=== PATIENT | male | born 1955 | race Caucasian/White ===

== ENCOUNTER 2024-05-03 19:22 | Emergency (ER) | payer MEDICARE, OTHER ==
[2024-05-03 19:46] VITALS: BP 120/70; O2SAT 98
--- NOTE | 2024-05-03 19:49 | ED Physician Documentation ---
History of Present Illness - Stated complaint Stated Complaint: R FINGER LAC - Chief complaint Chief Complaint: Laceration - Additonal information Additional information: Patient is a 68-year-old male presenting to the emergency department with right finger lack. Injury occurred around 1630 this afternoon. Patient notes he was sharpening a blade did not wearing protective gloves. He washed wound and wrapped at home but continues to have mild bleeding. He is not on any blood thinners. He is right-handed. Last tetanus shot was over 20 years ago according to patient. Injury occurred over right fifth digit over PIP joint on dorsal side. PD PAST MEDICAL HISTORY - Past Medical History Past Medical History: No - Past Surgical History Past Surgical History: Yes General: Hiatal hernia repair - Present Medications Home Medications: Ambulatory Orders Medication Instructions Recorded Confirmed No Known Home Medications 05/03/24 05/03/24 - Allergies Allergies/Adverse Reactions: Allergies Allergy/AdvReac Type Severity Reaction Status Date / Time No Known Drug Allergies Allergy Verified 05/03/24 19:38 - Social History Does the pt smoke?: No Smoking Status: Never smoker Does the pt drink ETOH?: Yes Does the pt have substance abuse?: No - Immunizations Immunizations are current?: No Immunizations: TDAP >10years/unknown PD ED PE NORMAL - Vitals Vital signs reviewed: Yes - General General: Alert and oriented X 3 - HEENT HEENT: Atraumatic - Neck Neck: Supple, no meningeal sign - Cardiac Cardiac: RRR - Respiratory Respiratory: No respiratory distress - Abdomen Abdomen: Normal bowel sounds - Derm Derm: Other (Laceration to PIP joint wiht minimal bleeding, no signs of contamin ation. Full ROM and strenght at PIP and DIP and MCP joint. Good capillary refill < 3 seconds.) - Extremities Extremities: No deformity, No edema - Neuro Neuro: Alert and oriented X 3 Results - Vitals Vitals: Vital Signs - 24 hr 05/03/24 05/03/24 19:35 20:57 Temperature 36.7 C 36.7 C Heart Rate 50 L 52 L Respiratory 18 18 Rate Blood Pressure 120/70 120/70 O2 Saturation 98 98 Oxygen O2 Source Room air Procedures - Laceration (location) right fifth digit Length in cm: 2 Wound type: Linear Neurovascular status: Sensory intact, Motor intact, Vascular intact Tendon involvement: Tendon intact, Tendon Injury Anesthesia: Lidocaine 1% Wound preparation: Irrigated copiously NS Skin layer closure: Nylon, Sutures - enter # (3) Other: Patient tolerated well, No complications, Tetanus UTD PD Medical Decision Making - ED course Complexity details: re-evaluated patient ED course: Patient is a 68-year-old male who presents to the emergency department with right finger locked to fifth digit at PIP joint. Patient sustained 2 cm laceration with minimal depth however given area of injury sutures were placed as it is over the joint. No significant contamination wound was cleaned thor oughly no signs of foreign bodies. No injury to nail. Patient had full sensation and good capillary refill on examination. Patient had 3 stitches placed and wrapped with a splint here in emergency department. Patient tolerated procedure well. See procedure note above. Patient instructed to return with any numbness tingling discoloration weakness to right finger. Patient will follow-up in 14 days with PCP for wound recheck and suture removal. Patient instructed to watch for any redness swelling warmth fevers or discharge these are signs of infection he should return to the emergency department. Departure - Departure Disposition: 01 Home, Self Care Clinical Impression: Laceration, Laceration of little finger without foreign body Condition: Good Instructions: ED Laceration All Comments: Come back for any signs of infection which would include: Redness, swelling, drainage, increased pain, or fevers. You can wash it soap and water. Keep it covered and moist with bacitracin ointment which is available over the counter; avoid neosporin. Follow-up with your physician in [14] days for suture removal. Forms: PCP List Discharge Date/Time: 05/03/24 20:58
[2024-05-03] MEDS: TETANUS/DIPHTHERIA/PERTUSSIS 0.5 ML SYRINGE IM ONE (19:57)
== END 2024-05-03 20:58 | disposition home or self-care (01) ==
LOC: ED 19:22
DX: S61.216A Laceration without foreign body of right little finger without damage to nail, initial encounter (principal); W26.0XXA Contact with knife, initial encounter; Y93.89 Activity, other specified
CPT/HCPCS: 12001; 99283